=== PATIENT | female | born 1995 | race African-American/Black ===

== ENCOUNTER 2018-01-09 15:37 | Emergency (ER) | payer OTHER ==
[2018-01-09 15:51] VITALS: BP 136/76; PULSE 87; TEMP 98; BMI 28.0
--- NOTE | 2018-01-09 15:52 | PDOC ---
Rapid Medical Evaluation Time Seen by Provider: 01/09/18 15:47 Medical Evaluation: 01/09/18 15:47 The patient presents with a chief complaint of: Back pain since Friday. 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 Since then the pain went to the R arm, R neck and is now numb. Also c/o of headache. I have performed a brief in-person evaluation of this patient; Pertinent physical exam findings: ambulatory, in no respiratory distress, TTP R upper back, states it does not feel the same when touching the r side I have ordered the following: urine preg The patient will proceed to the ED for further evaluation.
[2018-01-09] MEDS ORDERED: KETOROLAC TROMETHAMINE 60 MG/2 ML VIAL IM ONE (16:30)
[2018-01-09] MEDS ORDERED: KETOROLAC TROMETHAMINE 60 MG/2 ML VIAL ONE (16:49)
--- NOTE | 2018-01-09 17:05 | PDOC ---
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 No numbness or tingling. Describes pain as "numbing" just to skin. Patient denies any respiratory difficulty, no shortness of breath, good range of motion to shoulder. PMH: [None] MEDS:[ None] ALLERGIES: [None] REVIEW OF SYSTEMS: GENERAL/CONSTITUTIONAL: Awake alert and oriented HEAD, EYES, EARS, NOSE AND THROAT: No change in vision. No facial edema, no bruising. NO active bleeding. Nares intact. RESPIRATORY: No cough, wheezing, or hemoptysis. CARDIAC: Denies chest pain, no shortness of breathe. MUSCULOSKELETAL: No spinal point tenderness, Good ROM to all four extremities. NO CVA tenderness. [Right] lateral neck pain. Right lateral shoulder pain. GI/: Denies abdominal pain, no nausea or vomiting, no bloody stool, no Hematuria. SKIN : No erythema or bruising noted. No abrasion or lacerations. NEUROLOGIC: No loss of consciousness, no numbness or tingling. PHYSICAL EXAM: GENERAL: Awake and alert and oriented x3. EYES: The pupils are equal, round, and reactive to light, with clear, conjunctiva. Good extraocular movement. No nystagmus NOSE: No nasal trauma . Midface stable MOUTH: Teeth intact. EARS: The ear canals and tympanic membranes are normal without trauma. No drainage. NECK: No Lower cervical C-spine tenderness, no pain with chin to chest. CHEST: The lungs are clear without crackles, or wheezes. No subcutaneous emphysema. No crepitus. HEART: Heart is regular rhythm, with normal S1 and S2, no murmurs. ABDOMEN: The abdomen is soft and nontender with normal bowel sounds. There is no guarding or rebound. MUSCULOSKELETAL: No spinal point tenderness. No bruising or erythema. Pelvis stable. EXTREMITIES: Extremities are with normal range of motion without associated pain , pain to right trapezius on palpation. No visible traumatic injury. NEUROLOGICAL:Mental status: The patient is oriented x3. No Generalized headache , Romberg [-] Cranial nerves: Cranial nerves II through XII are intact Motor: The upper extremities are 5 over 5 in all muscle groups. The lower extremities are 5 over 5 in all muscle groups. Sensation: Sensation is intact to light touch throughout. SKIN: Without edema, erythema or bruising. No abrasions or lacerations. Past History - Past Medical History Allergies/Adverse Reactions: Allergies Allergy/AdvReac Type Severity Reaction Status Date / Time No Known Allergies Allergy Verified 01/09/18 15:47 Home Medications: Ambulatory Orders Naproxen [Naprosyn] 500 mg PO BID #20 tablet 01/09/18 COPD: No - Suicide/Smoking/Psychosocial Hx Smoking History: Never smoked Have you smoked in the past 12 months: No Information on smoking cessation initiated: No Hx Alcohol Use: No Drug/Substance Use Hx: No Substance Use Type: None *Physical Exam - Vital Signs Last Vital Signs Temp Pulse Resp BP Pulse Ox 98.0 F 87 18 136/76 100 01/09/18 15:48 01/09/18 15:48 01/09/18 15:48 01/09/18 15:48 01/09/18 15:48 ED Treatment Course - ADDITIONAL ORDERS Additional order review: Laboratory Results 01/09/18 15:57 Urine HCG, Qual Negative - RADIOLOGY Radiology Studies Ordered: Category Date Time Status SPINE-CERVICAL [RAD] Stat Radiology 01/09/18 16:30 Ordered - Medications Given in the ED: ED Medications Discontinued Medications Generic Name Dose Route Start Last Admin Trade Name Freq PRN Reason Stop Dose Admin Ketorolac Tromethamine 60 mg 01/09/18 16:30 01/09/18 16:52 Toradol Injection - IM 01/09/18 16:31 60 mg ONCE ONE Administration Medical Decision Making - Medical Decision Making 01/09/18 17:04 A/P: Patient with right lateral neck and shoulder pain after lifting a person at work. Patient with pain to trapezius muscle and muscle strain. Will perform x -ray of cervical spine, urine which is negative give Toradol 60 mg IM. 01/09/18 17:31 C-spine neck showed no acute fracture or subluxation. She reports no relief after Toradol was only given 20 minutes prior, will reevaluate after 20 minutes. 01/09/18 21:36 Pain is resolved after medication will discharge patient home with anti- inflammatories, follow-up with orthopedics as needed for pain *DC/Admit/Observation/Transfer Diagnosis at time of Disposition: Neck muscle strain Qualifiers: Encounter type: initial encounter Qualified Code(s): S16.1XXA - Strain of muscle, fascia and tendon at neck level, initial encounter - Discharge Dispostion Disposition: HOME Condition at time of disposition: Stable Admit: No - Prescriptions Prescriptions: Naproxen [Naprosyn] 500 mg PO BID #20 tablet - Referrals Referrals: Dmitriy Leone MD [Staff Physician] - - Patient Instructions Printed Discharge Instructions: Whiplash Additional Instructions: 1. Please return to the emergency department with any numbness, tingling, weakness, numbness or tingling to groin or legs, or loss of bowel or bladder function. 2. Use pain medication as ordered. 3. Please is to followup in the office of Dr. Leone for evaluation within a week if no improvement. 4. Ice or heat 5. Refrain from lifting anything above 10 pounds, until pain resolved. - Post Discharge Activity Forms/Work/School Notes: Back to Work
== END 2018-01-09 18:04 | disposition home or self-care (01) ==
LOC: JERFT 15:37
PROC: 3E0233Z Introduction of Anti-inflammatory into Muscle, Percutaneous Approach (ICD-10-PCS; principal; 2018-01-09)
DX: S16.1XXA Strain of muscle, fascia and tendon at neck level, initial encounter (principal); X50.9XXA Other and unspecified overexertion or strenuous movements or postures, initial encounter; Y93.F2 Activity, caregiving, lifting; Y92.098 Other place in other non-institutional residence as the place of occurrence of the external cause; Y99.0 Civilian activity done for income or pay
CPT/HCPCS: 72050-TC-FY; 84703; 99281-25